=== PATIENT | female | born 1995 | race Caucasian/White ===

== ENCOUNTER 2024-02-19 14:32 | Inpatient (IN) | payer OTHER ==
[2024-02-19] MEDS: SODIUM CHLORIDE 0.9% 500 ML INFUS.BAG IV ONE ×2 (15:02→16:50)
[2024-02-19 15:10] LABS: HEMATOCRIT 38.5 % (32.4-45.2); HEMOGLOBIN 12.2 G/dL (10.7-15.3); MCH 23.2 pg (25.7-33.7); MCHC 31.6 g/dl (32.0-36.0); MEAN CELL VOLUME 73.4 fl (80-96); MEAN PLT VOLUME 11.8 fl (7.5-11.1); PLATELET COUNT 164.3 10^3/uL (134-434); RBC 5.25 10^6/uL (3.60-5.2); RDW 17.4 % (11.6-15.6); WHITE BLOOD COUNT 4.1 10^3/uL (4.0-10.8)
[2024-02-19 15:14] LABS: EPITHELIAL CELLS 0-5 /hpf
[2024-02-19 15:27] LABS: ALBUMIN 4.2 g/dl (3.4-5.0); BILIRUBIN,TOTAL 0.3 mg/dl (0.2-1); CALCIUM 8.6 mg/dl (8.5-10.1); CREATININE 0.6 mg/dl (0.6-1.3); MAGNESIUM 2.1 mg/dL (1.8-2.4); POTASSIUM 4.2 mmol/L (3.5-5.1); TOT PROT 7.1 g/dl (6.4-8.2)
[2024-02-19] MEDS ORDERED: ACETAMINOPHEN INJECTION 100 ML ONE (15:32)
[2024-02-19] MEDS: ACETAMINOPHEN 1000 MG/100 ML BAG IVPB ONE (15:43)
[2024-02-19] MEDS ORDERED: DOCUSATE SODIUM 100 MG CAPSULE (FP) PO PRN (21:41)
[2024-02-19] MEDS: SODIUM CHLORIDE 1,000 ML IV SCH (22:14)
[2024-02-20] MEDS: KETOROLAC TROMETHAMINE 15 MG/ML VIAL IVPUSH ONE (06:49)
[2024-02-20] MEDS: SODIUM CHLORIDE 1,000 ML IV SCH (07:55)
[2024-02-20 08:19] LABS: HEMATOCRIT 33.1 % (32.4-45.2); HEMOGLOBIN 10.5 G/dL (10.7-15.3); MCH 23.5 pg (25.7-33.7); MCHC 31.8 g/dl (32.0-36.0); MEAN PLT VOLUME 12.4 fl (7.5-11.1); PLATELET COUNT 125.3 10^3/uL (134-434); RBC 4.47 10^6/uL (3.60-5.2); RDW 17.1 % (11.6-15.6); WHITE BLOOD COUNT 2.5 10^3/uL (4.0-10.8)
[2024-02-20 08:20] LABS: INR 1.09 (0.83-1.09); PROTHROMBIN TIME (PATIENT) 12.4 SEC (9.7-13.0)
[2024-02-20 08:23] LABS: ACTIVATED PTT 29.5 SECONDS (25.2-36.5)
[2024-02-20 08:57] LABS: ALBUMIN 3.2 g/dl (3.4-5.0); BILIRUBIN,TOTAL 0.3 mg/dl (0.2-1); CALCIUM 7.6 mg/dl (8.5-10.1); CREATININE 0.5 mg/dl (0.6-1.3); TOT PROT 5.6 g/dl (6.4-8.2)
[2024-02-20] MEDS ORDERED: IBUPROFEN 600 MG TABLET (FP) PO PRN (10:44)
[2024-02-21 08:19] LABS: ALBUMIN 3.2 g/dl (3.4-5.0); BILIRUBIN,TOTAL 0.3 mg/dl (0.2-1); CALCIUM 7.8 mg/dl (8.5-10.1); CREATININE 0.5 mg/dl (0.6-1.3); MAGNESIUM 1.9 mg/dL (1.8-2.4); POTASSIUM 3.9 mmol/L (3.5-5.1); TOT PROT 5.6 g/dl (6.4-8.2)
[2024-02-21] MEDS: SODIUM CHLORIDE 1,000 ML IV SCH (08:55)
[2024-02-21 09:10] LABS: BASO % 0.5 % (0-2.0); EOS % 0.5 % (0-4.5); HEMATOCRIT 32.7 % (32.4-45.2); HEMOGLOBIN 10.3 GM/dL (10.7-15.3); LYMPH % 25.9 % (8-40); MCH 23.2 pg (25.7-33.7); MCHC 31.5 g/dl (32.0-36.0); MEAN CELL VOLUME 73.9 fl (80-96); MEAN PLT VOLUME 10.6 fl (7.5-11.1); MONO % 12.4 % (3.8-10.2); NEUT % 60.7 % (42.8-82.8); PLATELET COUNT 117 10^3/uL (134-434); RBC 4.43 M/mm3 (3.60-5.2); RDW 16.7 % (11.6-15.6); WHITE BLOOD COUNT 2.3 K/mm3 (4.0-10.0)
[2024-02-21] MEDS: ENOXAPARIN NA (PORCINE) 40 MG/0.4 ML DISP.SYRIN SQ SCH (10:44)
[2024-02-21 13:21] VITALS: BMI 30.9
[2024-02-21 17:16] LABS: COCAINE, UR NEGATIVE (NEGATIVE); URINE AMPHETAMINES NEGATIVE (NEGATIVE)
[2024-02-21 17:17] LABS: METHADONE, UR NEGATIVE (NEGATIVE); OPIATES, URI NEGATIVE (NEGATIVE); PHENCYCLIDINE,URINE NEGATIVE (NEGATIVE); URINE BARBITURATES NEGATIVE (NEGATIVE); URINE BENZODIAZEPINES NEGATIVE (NEGATIVE)
[2024-02-22 02:10] LABS: URINE APPEARANCE CLEAR; URINE BILIRUBIN NEGATIVE (NEGATIVE); URINE COLOR YELLOW; URINE GLUCOSE (UA) NEGATIVE (NEGATIVE); URINE KETONE TRACE (NEGATIVE); URINE LEUK ESTERASE NEGATIVE (NEGATIVE); URINE NITRITE NEGATIVE (NEGATIVE); URINE PROTEIN NEGATIVE (NEGATIVE); URINE UROBILINOGEN 0.2 mg/dL (0.2-1.0)
[2024-02-22 07:55] LABS: CALCIUM 7.6 mg/dl (8.5-10.1); CREATININE 0.5 mg/dl (0.6-1.3); POTASSIUM 3.7 mmol/L (3.5-5.1)
[2024-02-22 10:15] LABS: BASO % 0.2 % (0-2.0); EOS % 0.8 % (0-4.5); HEMATOCRIT 31.6 % (32.4-45.2); HEMOGLOBIN 10.1 GM/dL (10.7-15.3); LYMPH % 19.8 % (8-40); MCH 23.3 pg (25.7-33.7); MEAN CELL VOLUME 72.9 fl (80-96); MEAN PLT VOLUME 10.7 fl (7.5-11.1); MONO % 13.6 % (3.8-10.2); NEUT % 65.6 % (42.8-82.8); PLATELET COUNT 114 10^3/uL (134-434); RBC 4.33 M/mm3 (3.60-5.2); RDW 17.2 % (11.6-15.6); WHITE BLOOD COUNT 2.7 K/mm3 (4.0-10.0)
[2024-02-22] MEDS: METHOTREXATE 2.5 MG TABLET PO SCH (12:23)
[2024-02-22] MEDS: predniSONE 20 MG TABLET (UD) PO SCH ×2 (12:23→15:34)
[2024-02-22] MEDS: THIAMINE 100 MG TABLET PO SCH (12:23)
[2024-02-22] MEDS: FOLIC ACID 1 MG TABLET (FP) PO SCH (12:23)
[2024-02-22] MEDS: PANTOPRAZOLE 40 MG TABLET PO SCH (15:34)
[2024-02-22] MEDS ORDERED: SUMAtriptan SUCCINATE 25 MG TABLET ONE (18:53)
[2024-02-22] MEDS: SUMAtriptan SUCCINATE 25 MG TABLET PO ONE (18:58)
[2024-02-22] MEDS: ACETAMINOPHEN 500 MG TABLET (FP) PO ONE (18:58)
[2024-02-22] MEDS: FAMOTIDINE 20 MG TABLET PO SCH (21:19)
[2024-02-23] MEDS ORDERED: SUMAtriptan SUCCINATE 25 MG TABLET PO PRN (07:51)
[2024-02-23] MEDS ORDERED: FOLIC ACID 1 MG TABLET (FP) PO SCH (10:00)
[2024-02-23 10:03] LABS: ALBUMIN 3.3 g/dl (3.4-5.0); BILIRUBIN,TOTAL 0.3 mg/dl (0.2-1); CALCIUM 8.5 mg/dl (8.5-10.1); CREATININE 0.4 mg/dl (0.6-1.3); MAGNESIUM 1.9 mg/dL (1.8-2.4); PHOSPHOROUS 4.6 (2.5-4.9); POTASSIUM 4.1 mmol/L (3.5-5.1); TOT PROT 5.8 g/dl (6.4-8.2)
[2024-02-23 13:10] LABS: HEMATOCRIT 33.6 % (32.4-45.2); HEMOGLOBIN 10.7 GM/dL (10.7-15.3); LYMPH % 11.4 % (8-40); MCH 23.4 pg (25.7-33.7); MCHC 31.9 g/dl (32.0-36.0); MEAN CELL VOLUME 73.1 fl (80-96); MEAN PLT VOLUME 10.8 fl (7.5-11.1); MONO % 9.6 % (3.8-10.2); PLATELET COUNT 131 10^3/uL (134-434); RBC 4.59 M/mm3 (3.60-5.2); RDW 16.9 % (11.6-15.6); WHITE BLOOD COUNT 2.3 K/mm3 (4.0-10.0)
[2024-02-23 22:17] VITALS: RESP 18
[2024-02-24 08:05] LABS: HEMATOCRIT 30.6 % (32.4-45.2); HEMOGLOBIN 9.8 G/dL (10.7-15.3); MCH 23.7 pg (25.7-33.7); MCHC 32.1 g/dl (32.0-36.0); MEAN CELL VOLUME 73.8 fl (80-96); MEAN PLT VOLUME 12.3 fl (7.5-11.1); PLATELET COUNT 163.8 10^3/uL (134-434); RBC 4.15 10^6/uL (3.60-5.2); RDW 17.5 % (11.6-15.6); WHITE BLOOD COUNT 3.9 10^3/uL (4.0-10.8)
[2024-02-24 09:33] LABS: ALBUMIN 3.2 g/dl (3.4-5.0); BILIRUBIN,TOTAL 0.3 mg/dl (0.2-1); CALCIUM 8.2 mg/dl (8.5-10.1); CREATININE 0.4 mg/dl (0.6-1.3); POTASSIUM 3.8 mmol/L (3.5-5.1); TOT PROT 5.4 g/dl (6.4-8.2)
[2024-02-24 09:42] LABS: PLATELET ESTIMATE ADEQUATE
[2024-02-24 09:51] VITALS: BP 134/74; PULSE 76; TEMP 98.1
== END 2024-02-24 12:54 | disposition home or self-care (01) ==
LOC: FER 14:32 → FM/S 18:01 → OBSVTOIN 02-20 10:44
PROVIDERS: ADMIT Internal Medicine; ATTEND Internal Medicine
DX: R74.8 Abnormal levels of other serum enzymes (principal)
CPT/HCPCS: 0241U-QW; 36415; 76705-TC; 80048; 80053; 80307; 81003; 81015; 82085; 82550; 82553; 82728; 83540; 83550; 83615; 83690; 83735; 84100; 84439; 84443; 84703; 85025; 85027; 85610; 85730; 86038; 86160; 86225; 86235; 86308; 87086; 87633; 93005; 93010; 99285-25; G0378; J0131; J8610